=== PATIENT | male | born 1940 | race Caucasian/White ===

== ENCOUNTER 2017-03-08 16:12 | Outpatient (CLI) | payer MEDICARE, OTHER ==
--- NOTE | 2017-03-09 09:26 | MRI ---
MRI CERVICAL SPINE: HISTORY: Cervical spondylosis, M47.12. FINDINGS: Multiplanar, multisequence, noncontrast-enhanced MRI images cervical spine obtained. The spinal cord demonstrates no significant evidence of cord masses. Areas of cord compression are seen. Please see below dictation. C1-2: Unremarkable. C2-3: Unremarkable. C3-4: There is a broad-based disk-osteophyte complex centrally compressing the thecal sac resulting in a moderate degree of central spinal stenosis. Moderate to severe right and moderate left-sided C3-4 neural foraminal narrowing is seen due to uncovertebral osteophyte hypertrophy. C4-5: Disk-osteophyte complex is seen centrally compressing the thecal sac resulting in mild to mod erate central spinal stenosis. Moderate bilateral neural foraminal narrowing is seen due to uncover tebral osteophyte hypertrophy. C5-6: Disk desiccation is seen. There is a broad-based disk-osteophyte complex centrally compressi ng the thecal sac resulting in a moderate degree of central and mild lateral recess stenosis. Mild to moderate right and mild left-sided neural foraminal narrowing is seen due to uncovertebral osteop hyte hypertrophy. C6-7: Unremarkable. C7-T1: Unremarkable. IMPRESSION: Midcervical changes of spondylosis. Most significant degree of stenosis is at the C3-4 level. No s ignificant evident of signal abnormality is seen within the spinal cord. POS: [facility]
== END 2017-03-08 16:13 | disposition home or self-care (01) ==
LOC: MRI 16:12
PROVIDERS: ATTEND Neurological Surgery
DX: M47.22 Other spondylosis with radiculopathy, cervical region (principal); M48.02 Spinal stenosis, cervical region
CPT/HCPCS: 72141

== ENCOUNTER 2017-05-15 09:59 | Inpatient (IN) | payer MEDICARE, OTHER ==
[2017-05-12 14:44] VITALS: BMI 26.5
[2017-05-15] MEDS ORDERED: Ondansetron HCl/PF 4 MG/2 ML Vial ONE (10:39)
[2017-05-15] MEDS ORDERED: Dexamethasone 20 MG/5 ML VIAL ONE (10:39)
[2017-05-15] MEDS ORDERED: Glycopyrrolate 0.2 MG/ML 5 ML SYRINGE ONE (10:39)
[2017-05-15] MEDS ORDERED: Propofol 200 MG/20 ML VIAL ONE (10:39)
[2017-05-15] MEDS ORDERED: Lidocaine 1% PF 5 ML VIAL ONE (10:39)
[2017-05-15] MEDS ORDERED: PHENYLEPHRINE-NS 100 MCG/ML 10 ML SYRINGE ONE ×2 (10:39→13:56)
[2017-05-15] MEDS ORDERED: ePHEDrine/0.9% NaCl/PF SYRINGE 50 mg/10 ml ONE (10:39)
[2017-05-15 10:59] LABS: #Eosinphils 0.2 thou/uL (0.0-0.7); #Lymphocytes 1.3 thou/uL (1.20-3.40); #Monocytes 0.8 thou/uL (0.11-0.59); #Neutrophils 4.8 thou/uL (1.40-6.50); %Basophils 0.4 % (0.0-1.0); %Eosinophils 2.2 % (0.0-10.0); %Lymphocytes 18.1 % (21.0-51.0); %Monocytes 11.6 % (0.0-10.0); Hematocrit 41.2 % (42.0-52.0); Mean Platelet Volume 7.1 fL (7.4-10.4); Red Blood Cell (RBC) Count 4.13 mill/uL (4.70-6.10); White Blood Cell (WBC) Count 7.1 thou/uL (4.8-10.8)
[2017-05-15 11:19] LABS: Anion Gap 12 mmol/L (10-20); BUN (Urea Nitrogen) 18 mg/dL (8.4-25.7); Calc. Creatinine Clearance 76 mL/min (70-130); Calcium 9.4 mg/dL (7.8-10.44); Carbon Dioxide 28 mmol/L (23-31); Chloride 102 mmol/L (98-107); Estimated GFR-MDRD 68
[2017-05-15] MEDS ORDERED: Levofloxacin 500 mg/D5W 100 ml Premix Bag ONE (11:22)
[2017-05-15] MEDS ORDERED: Clindamycin/D5W 900 mg/50 ml Premix Bag ONE (11:22)
[2017-05-15] MEDS ORDERED: Fentanyl 250 MCG/5 ML VIAL ONE (12:55)
[2017-05-15] MEDS ORDERED: Sodium Chloride 0.9% 10 ML ONE (13:11)
--- NOTE | 2017-05-15 14:54 | OP ---
DATE OF PROCEDURE: 05/15/2017 SURGEON: Geraldo Higgins M.D. RAVELER: Fabien Dobson PROCEDURES: Anterior cervical diskectomy C3 through C6, interbody arthrodesis, intravertebral biomec hanical device, local morselized autograft, demineralized bone matrix, titanium instrumentation C3-C6 . DESCRIPTION OF PROCEDURE: The patient was brought into the operating room and intubated. He was pos itioned supine with the head in modest extension on a gel-filled donut. An incision made in the righ t precervical area and dissecting medial to the sternocleidomastoid muscle. We identified the anteri or cervical spine and our level was confirmed by x-ray. We debrided anterior osteophytes, placed dis traction across the disc spaces, and using the operating microscope and microdissection techniques, c ompletely removed the intravertebral discs down to the level of the dura at all affected levels. Aft er complete decompression was secured, the bony endplates were decorticated for the purpose of arthro desis and appropriately sized intravertebral biomechanical PEEK device was brought into the field, fi lled with demineralized bone matrix and local morselized autograft, and tapped into place securely at C3-4, C4-5 and C5-6. Next, an anterior plate was brought in the field and secured to C3, C4, C5, an d C6 using two 14 mm screws at each level. The wound was then extensively irrigated, immaculate hemo stasis was secured, and the wound was closed in anatomic layers over a drain.
[2017-05-15] MEDS ORDERED: Ondansetron HCl/PF 4 MG/2 ML Vial IVP PRN ×2 (14:56→17:01)
[2017-05-15] MEDS ORDERED: Promethazine HCl 25 MG/ML VIAL IM PRN ×2 (14:56→17:01)
[2017-05-15] MEDS ORDERED: Promethazine HCl 25 MG/ML VIAL SLOW IVP PRN (14:56)
[2017-05-15] MEDS ORDERED: Fentanyl 100 MCG/2 ML VIAL ONE ×2 (15:19→15:48)
[2017-05-15] MEDS ORDERED: Morphine 4 MG/ML Carpuject SLOW IVP PRN (17:01)
[2017-05-15] MEDS ORDERED: Milk Of Magnesia 30 ML UDCUP PO PRN (17:01)
[2017-05-15] MEDS ORDERED: traMADol HCl 50 MG TAB PO PRN ×2 (17:01)
[2017-05-15] MEDS ORDERED: HYDROcodone/Acetaminophen 10/325 mg Tablet PO PRN (17:01)
[2017-05-15] MEDS ORDERED: Mag-Al 1200 mg/1200 mg/30 ML UDCUP PO PRN (17:01)
[2017-05-15] MEDS ORDERED: Promethazine HCl 12.5 MG SUPP PR PRN (17:01)
[2017-05-15] MEDS ORDERED: diphenhydrAMINE 25 MG CAP PO PRN (17:01)
[2017-05-15] MEDS ORDERED: tiZANidine HCl 4 MG TAB PO PRN (17:01)
[2017-05-15] MEDS ORDERED: diphenhydrAMINE 50 MG/ML VIAL IVP PRN (17:01)
[2017-05-15] MEDS ORDERED: Morphine 4 MG/ML VIAL SLOW IVP PRN ×2 (17:07)
[2017-05-15] MEDS: Sodium Chloride 0.9% 1,000 ML IV SCH (19:19)
--- NOTE | 2017-05-15 19:21 | PDOC.PN ---
- Subjective Encounter Start Date: 05/15/17 Encounter Start Time: 07:00 Subjective: no sob. Moves all extremities -: no chest pain. No pain - Objective MAR Reviewed: Yes Vital Signs & Weight: Vital Signs (12 hours) Temp Pulse Resp BP Pulse Ox 05/15/17 18:00 98.9 F 104 H 16 164/82 H 93 L 05/15/17 17:30 99 F 101 H 16 143/80 H 94 L 05/15/17 17:15 99.1 F 108 H 16 147/77 H 94 L 05/15/17 17:00 99 F 101 H 16 94 L 05/15/17 16:39 99.3 F 108 H 16 156/84 H 95 Weight Weight 201 lb Result Diagrams: 05/15/17 10:52 05/15/17 10:52 Phys Exam - Physical Examination HEENT: PERRLA, moist MMs Neck: no JVD surgical incision anterolat neck with monie drain+ Respiratory: no wheezing, no rales Cardiovascular: RRR, no significant murmur Gastrointestinal: soft, non-tender, positive bowel sounds Musculoskeletal: pulses present Neurological: non-focal, moves all 4 limbs Psychiatric: A&O x 3 Dx/Plan (1) Dyslipidemia Code(s): E78.5 - HYPERLIPIDEMIA, UNSPECIFIED Status: Chronic (2) GERD (gastroesophageal reflux disease) Code(s): K21.9 - GASTRO-ESOPHAGEAL REFLUX DISEASE WITHOUT ESOPHAGITIS Status: Chronic Qualifiers: Esophagitis presence: esophagitis presence not specified Qualified Code(s) : K21.9 - Gastro-esophageal reflux disease without esophagitis (3) H/O prostate cancer Code(s): Z85.46 - PERSONAL HISTORY OF MALIGNANT NEOPLASM OF PROSTATE Status: Chronic (4) S/P cervical discectomy Code(s): Z98.890 - OTHER SPECIFIED POSTPROCEDURAL STATES Status: Acute - Plan oral diet as tolerated -: morphine, narco prn -: is on mevacor for dyslip -: ativan hs for insomnia -: nebs prn, i.spirometry * . Review of Systems - Medications/Allergies Allergies/Adverse Reactions: Allergies Allergy/AdvReac Type Severity Reaction Status Date / Time ampicillin AdvReac Verified 05/15/17 17:08 aspirin AdvReac Verified 05/15/17 17:08 Penicillins AdvReac Verified 05/15/17 17:08 tetracycline AdvReac Verified 05/15/17 17:08 Medications: Current Medications Hydrocodone Bitart/Acetaminophen ([place] 10/325) 1 tab PO Q4H PRN PRN Reason: PAIN (1-3) Hydrocodone Bitart/Acetaminophen ([place] 10/325) 2 tab PO Q4H PRN PRN Reason: PAIN (4-6) Al Hydroxide/Mg Hydroxide (Maalox) 30 ml PO Q4H PRN PRN Reason: Heartburn or Indigestion Diphenhydramine HCl (Benadryl) 25 mg PO Q6H PRN PRN Reason: Itching Diphenhydramine HCl (Benadryl) 25 mg IVP Q6H PRN PRN Reason: Itching Sodium Chloride (Normal Saline 0.9%) 1,000 mls @ 75 mls/hr IV .[id number] [facility] Last Admin: 05/15/17 19:19 Dose: 1,000 mls Clindamycin Phosphate/Dextrose (900 mg/ Device) 50 mls @ 100 mls/hr IVPB 0400, 1200,2000 [facility] Lorazepam (Ativan) 0.5 mg PO HS [facility] Lovastatin (Mevacor) 10 mg PO QPM-WM [facility] Magnesium Hydroxide (Milk Of Magnesium) 30 ml PO Q12H PRN PRN Reason: Constipation Morphine Sulfate (Morphine) 2 mg SLOW IVP Q1H PRN PRN Reason: Moderate Breakthrough Pain Morphine Sulfate (Morphine) 4 mg SLOW IVP Q1H PRN PRN Reason: Severe Breakthrough Pain Multivitamins (Theragran) 1 tab PO DAILY [facility] Ondansetron HCl (Zofran) 4 mg IVP Q24H PRN PRN Reason: Nausea/Vomiting Pantoprazole Sodium (Protonix) 40 mg PO QAM-WM [facility] Glucosamine Complex Patient's Home Medication 1 each PO QAM [facility] Promethazine HCl (Phenergan) 12.5 mg IM Q4H PRN PRN Reason: Nausea/Vomiting Promethazine HCl (Phenergan) 12.5 mg PO Q4H PRN PRN Reason: Nausea/Vomiting Promethazine HCl (Phenergan Suppository) 12.5 mg LA Q4H PRN PRN Reason: Nausea/Vomiting Sodium Chloride (Flush - Normal Saline) 10 ml IVF Q12HR [facility] Sodium Chloride (Flush - Normal Saline) 10 ml IVF PRN PRN PRN Reason: Saline Flush Tizanidine HCl (Zanaflex) 4 mg PO Q6H PRN PRN Reason: MUSCLE SPASM Tramadol HCl (Ultram) 50 mg PO Q6H PRN PRN Reason: PAIN (1-3) Tramadol HCl (Ultram) 100 mg PO Q6H PRN PRN Reason: PAIN (4-6)
[2017-05-15] MEDS: Clindamycin/D5W 900 MG in Premix Bag 1 BAG IVPB SCH (20:48)
[2017-05-15] MEDS: Lovastatin 20 MG TAB PO SCH (20:49)
[2017-05-15] MEDS: Lorazepam 0.5 MG TAB PO SCH (22:32)
[2017-05-16] MEDS: Sodium Chloride 0.9% 1,000 ML IV SCH ×2 (04:00→20:24)
[2017-05-16] MEDS: Clindamycin/D5W 900 MG in Premix Bag 1 BAG IVPB SCH ×3 (04:14→20:24)
[2017-05-16] MEDS: Multivit, Therapeutic 1 TAB PO SCH (08:31)
[2017-05-16] MEDS ORDERED: GLUCOSAMINE COMPLEX PO SCH (09:00)
[2017-05-16] MEDS: HYDROcodone/Acetaminophen 10/325 mg Tablet PO PRN ×2 (11:47→16:59)
--- NOTE | 2017-05-16 14:01 | PDOC.PN ---
- Subjective Encounter Start Date: 05/16/17 Encounter Start Time: 13:59 Mr. Alaniz was seen today in follow-up. He noted some pain in his left shoulder ,but otherwise ok. He denies chest pain or shortness of breath. - Objective MAR Reviewed: Yes Vital Signs & Weight: Vital Signs (12 hours) Temp Pulse Pulse Pulse Pulse Resp BP 05/16/17 11:35 98.0 F 108 H 16 05/16/17 08:00 99.2 F 119 H 18 05/16/17 07:48 105 H 110 H 117 H 131/82 05/16/17 07:45 99.2 F 119 H 05/16/17 04:00 99.2 F 115 H 20 BP BP BP Pulse Ox 05/16/17 11:35 105/50 L 96 05/16/17 08:00 96 05/16/17 07:48 138/81 138/77 05/16/17 07:45 134/78 94 L 05/16/17 04:00 136/74 93 L Weight Weight 201 lb I&O: 05/15/17 05/16/17 05/17/17 06:59 06:59 06:59 Intake Total 1140 Output Total 610 Balance 530 Result Diagrams: 05/15/17 10:52 05/15/17 10:52 Phys Exam - Physical Examination HEENT: PERRLA + bilateral rhonchi, no rales Cardiovascular: RRR, no significant murmur Gastrointestinal: soft, non-tender, positive bowel sounds Musculoskeletal: no edema Dx/Plan (1) S/P cervical discectomy Code(s): Z98.890 - OTHER SPECIFIED POSTPROCEDURAL STATES Status: Acute (2) Dyslipidemia Code(s): E78.5 - HYPERLIPIDEMIA, UNSPECIFIED Status: Chronic (3) GERD (gastroesophageal reflux disease) Code(s): K21.9 - GASTRO-ESOPHAGEAL REFLUX DISEASE WITHOUT ESOPHAGITIS Status: Chronic Qualifiers: Esophagitis presence: esophagitis presence not specified Qualified Code(s) : K21.9 - Gastro-esophageal reflux disease without esophagitis - Plan * Patient is s/p ACD- clinically stable * I have encouraged Incentive spirometry * Blood pressure is low normal * Continue as per Neurosurgery .
[2017-05-16] MEDS: Lovastatin 20 MG TAB PO SCH (17:01)
[2017-05-16] MEDS: Lorazepam 0.5 MG TAB PO SCH (21:57)
[2017-05-17] MEDS: Clindamycin/D5W 900 MG in Premix Bag 1 BAG IVPB SCH ×3 (04:24→20:25)
[2017-05-17] MEDS: Multivit, Therapeutic 1 TAB PO SCH (09:00)
[2017-05-17] MEDS: Sodium Chloride 0.9% 1,000 ML IV SCH (09:14)
[2017-05-17] MEDS: Cepastat Lozenges 1 LOZ PO PRN ×2 (12:33→16:13)
[2017-05-17] MEDS ORDERED: Dexamethasone 4 mg/ml Vial SLOW IVP SCH (16:15)
[2017-05-17] MEDS ORDERED: Acetaminophen 1,000 MG in Premix Bag 1 BAG IVPB SCH (16:45)
[2017-05-17] MEDS ORDERED: Labetalol HCl 100 MG/20 ML VIAL SLOW IVP SCH (16:45)
[2017-05-17] MEDS: Lovastatin 20 MG TAB PO SCH (17:03)
[2017-05-17] MEDS ORDERED: Labetalol HCl 100 MG/20 ML VIAL SLOW IVP PRN (17:11)
--- NOTE | 2017-05-17 17:14 | PDOC.PN ---
- Subjective Encounter Start Date: 05/17/17 Encounter Start Time: 17:12 Mr. Alaniz was seen in follow-up today. He is post ACD. He says he is having a lot of difficulty swallowing, even liquids. He also has felt a bit weaker than yesterday. His nurse also called due to elevated blood pressure. - Objective MAR Reviewed: Yes Vital Signs & Weight: Vital Signs (12 hours) Temp Pulse Resp BP BP Pulse Ox 05/17/17 16:51 111 H 178/92 H 05/17/17 16:20 94 L 05/17/17 16:15 100.6 F H 108 H 20 184/104 H 94 L 05/17/17 11:25 98.9 F 87 20 172/89 H 93 L 05/17/17 07:40 99.0 F 100 16 152/87 H 92 L 05/17/17 07:35 99.0 F 100 16 92 L Weight Weight 201 lb I&O: 05/16/17 05/17/17 05/18/17 06:59 06:59 06:59 Intake Total 1140 5680 Output Total 610 615 Balance 530 5065 Result Diagrams: 05/15/17 10:52 05/15/17 10:52 Phys Exam - Physical Examination HEENT: PERRLA Respiratory: no wheezing, no rales, no rhonchi, clear to auscultation bilateral Cardiovascular: RRR, no significant murmur Gastrointestinal: soft, non-tender, positive bowel sounds Musculoskeletal: no edema Dx/Plan (1) S/P cervical discectomy Code(s): Z98.890 - OTHER SPECIFIED POSTPROCEDURAL STATES Status: Acute (2) Dyslipidemia Code(s): E78.5 - HYPERLIPIDEMIA, UNSPECIFIED Status: Chronic (3) GERD (gastroesophageal reflux disease) Code(s): K21.9 - GASTRO-ESOPHAGEAL REFLUX DISEASE WITHOUT ESOPHAGITIS Status: Chronic Qualifiers: Esophagitis presence: esophagitis presence not specified Qualified Code(s) : K21.9 - Gastro-esophageal reflux disease without esophagitis - Plan * Dysphagia- this is an expected effect following this type of surgery. We will change him to NPO, and have speech therapy evaluate him in the morning * Elevated blood pressure without HTN- will treat with Labetalol as needed for now, and monitor * Will change his fluids to D5NS
[2017-05-17] MEDS: D5 0.9% NS w/ 20 mEq KCl 1,000 ML IV SCH (18:33)
[2017-05-17] MEDS: Lorazepam 0.5 MG TAB PO SCH (22:19)
[2017-05-18] MEDS: Clindamycin/D5W 900 MG in Premix Bag 1 BAG IVPB SCH ×2 (05:21→11:23)
[2017-05-18] MEDS: D5 0.9% NS w/ 20 mEq KCl 1,000 ML IV SCH ×2 (06:42→09:45)
[2017-05-18] MEDS: Multivit, Therapeutic 1 TAB PO SCH (09:44)
--- NOTE | 2017-05-18 10:15 | PDOC.PN ---
- Subjective Encounter Start Date: 05/18/17 Encounter Start Time: 10:08 Mr. Alaniz was seen today in follow-up of elevated blood pressure and dysphagia. He feels he is doing a bit better today. - Objective MAR Reviewed: Yes Vital Signs & Weight: Vital Signs (12 hours) Temp Pulse Resp BP BP Pulse Ox 05/18/17 08:00 99.0 F 97 16 164/95 H 92 L 05/18/17 03:51 97.9 F 95 16 138/76 93 L 05/17/17 23:41 97.5 F L 94 20 144/87 H 94 L Weight Weight 201 lb I&O: 05/17/17 05/18/17 05/19/17 06:59 06:59 06:59 Intake Total 5680 900 Output Total 615 1100 Balance 5065 -200 Result Diagrams: 05/15/17 10:52 05/15/17 10:52 Phys Exam - Physical Examination HEENT: PERRLA Respiratory: no wheezing, no rales, no rhonchi, clear to auscultation bilateral Cardiovascular: RRR, no significant murmur Gastrointestinal: soft, non-tender, positive bowel sounds Musculoskeletal: no edema Dx/Plan (1) S/P cervical discectomy Code(s): Z98.890 - OTHER SPECIFIED POSTPROCEDURAL STATES Status: Acute (2) Dyslipidemia Code(s): E78.5 - HYPERLIPIDEMIA, UNSPECIFIED Status: Chronic (3) GERD (gastroesophageal reflux disease) Code(s): K21.9 - GASTRO-ESOPHAGEAL REFLUX DISEASE WITHOUT ESOPHAGITIS Status: Chronic Qualifiers: Esophagitis presence: esophagitis presence not specified Qualified Code(s) : K21.9 - Gastro-esophageal reflux disease without esophagitis - Plan * Dysphagia- Discussed with Sheri Bob PA-C from Neurosurgery, and will hold off on speech therapy consult, and monitor him a day or two more, give a trial of a diet today * Elevated blood pressure- he does not have a history of HTN- will continue to monitor, and treat the elevations symptomatically * PT/OT * Disposition as per Neurosurgery.
[2017-05-18] MEDS: Cepastat Lozenges 1 LOZ PO PRN (11:22)
[2017-05-18] MEDS: Dexamethasone 4 mg/ml Vial SLOW IVP SCH ×2 (11:23→18:16)
[2017-05-18] MEDS: Docusate 100 MG CAP PO SCH (20:11)
[2017-05-18] MEDS: Lovastatin 20 MG TAB PO SCH (20:11)
[2017-05-18] MEDS: Lorazepam 0.5 MG TAB PO SCH (20:11)
[2017-05-19] MEDS: Dexamethasone 4 mg/ml Vial SLOW IVP SCH ×2 (00:21→07:09)
[2017-05-19] MEDS: D5 0.9% NS w/ 20 mEq KCl 1,000 ML IV SCH (01:36)
[2017-05-19 08:11] VITALS: BP 170/94; TEMP 98.8
[2017-05-19] MEDS: Docusate 100 MG CAP PO SCH (08:24)
[2017-05-19] MEDS: Multivit, Therapeutic 1 TAB PO SCH (08:24)
--- NOTE | 2017-05-19 10:33 | PDOC.PN ---
- Subjective Encounter Start Date: 05/19/17 Encounter Start Time: 10:30 Subjective: no trouble swallowing, moving all extremities - Objective MAR Reviewed: Yes Vital Signs & Weight: Vital Signs (12 hours) Temp Pulse Resp BP Pulse Ox 05/19/17 08:00 98.8 F 92 16 170/94 H 93 L Weight Weight 201 lb I&O: 05/18/17 05/19/17 05/20/17 06:59 06:59 06:59 Intake Total 900 720 Output Total 1100 Balance -200 720 Result Diagrams: 05/15/17 10:52 05/15/17 10:52 Phys Exam - Physical Examination HEENT: PERRLA, moist MMs Neck: no JVD dressing over surgical site Respiratory: no wheezing, no rales Cardiovascular: RRR, no significant murmur Gastrointestinal: soft, non-tender, positive bowel sounds Musculoskeletal: no edema, pulses present Neurological: non-focal, moves all 4 limbs Psychiatric: A&O x 3 Dx/Plan (1) Dyslipidemia Code(s): E78.5 - HYPERLIPIDEMIA, UNSPECIFIED Status: Chronic (2) GERD (gastroesophageal reflux disease) Code(s): K21.9 - GASTRO-ESOPHAGEAL REFLUX DISEASE WITHOUT ESOPHAGITIS Status: Chronic Qualifiers: Esophagitis presence: esophagitis presence not specified Qualified Code(s) : K21.9 - Gastro-esophageal reflux disease without esophagitis (3) H/O prostate cancer Code(s): Z85.46 - PERSONAL HISTORY OF MALIGNANT NEOPLASM OF PROSTATE Status: Chronic (4) S/P cervical discectomy Code(s): Z98.890 - OTHER SPECIFIED POSTPROCEDURAL STATES Status: Acute - Plan hemostable -: awaiting rehab bed -: may dc anytime if ok with nsx -: is off decadron, dc iv fluids, tolerating oral diet * . Review of Systems - Medications/Allergies Allergies/Adverse Reactions: Allergies Allergy/AdvReac Type Severity Reaction Status Date / Time ampicillin AdvReac Verified 05/15/17 17:08 aspirin AdvReac Verified 05/15/17 17:08 Penicillins AdvReac Verified 05/15/17 17:08 tetracycline AdvReac Verified 05/15/17 17:08 Medications: Current Medications Hydrocodone Bitart/Acetaminophen ([place] 10/325) 1 tab PO Q4H PRN PRN Reason: PAIN (1-3) Hydrocodone Bitart/Acetaminophen ([place] 10/325) 2 tab PO Q4H PRN PRN Reason: PAIN (4-6) Last Admin: 05/16/17 16:59 Dose: 2 tab Al Hydroxide/Mg Hydroxide (Maalox) 30 ml PO Q4H PRN PRN Reason: Heartburn or Indigestion Diphenhydramine HCl (Benadryl) 25 mg PO Q6H PRN PRN Reason: Itching Diphenhydramine HCl (Benadryl) 25 mg IVP Q6H PRN PRN Reason: Itching Docusate Sodium (Colace) 100 mg PO BID [facility] Last Admin: 05/19/17 08:24 Dose: 100 mg Potassium Chloride/Dextrose/Sod Cl (D5 0.9% Ns W/ 20 Meq Kcl) 1,000 mls @ 75 mls/hr IV .[id number] [facility] Last Admin: 05/19/17 01:36 Dose: 1,000 mls Labetalol HCl (Normodyne) 20 mg SLOW IVP Q4H PRN PRN Reason: Systolic BP > 180 Lorazepam (Ativan) 0.5 mg PO [facility] Last Admin: 05/18/17 20:11 Dose: 0.5 mg Lovastatin (Mevacor) 10 mg PO Q-[facility] Last Admin: 05/18/17 20:11 Dose: 10 mg Magnesium Hydroxide (Milk Of Magnesium) 30 ml PO Q12H PRN PRN Reason: Constipation Morphine Sulfate (Morphine) 2 mg SLOW IVP Q1H PRN PRN Reason: Moderate Breakthrough Pain Morphine Sulfate (Morphine) 4 mg SLOW IVP Q1H PRN PRN Reason: Severe Breakthrough Pain Last Admin: 05/17/17 09:10 Dose: 4 mg Multivitamins (Theragran) 1 tab PO DAILY [facility] Last Admin: 05/19/17 08:24 Dose: 1 tab Ondansetron HCl (Zofran) 4 mg IVP Q24H PRN PRN Reason: Nausea/Vomiting Pantoprazole Sodium (Protonix) 40 mg PO QAM-[facility] Last Admin: 05/19/17 08:24 Dose: 40 mg Promethazine HCl (Phenergan) 12.5 mg IM Q4H PRN PRN Reason: Nausea/Vomiting Promethazine HCl (Phenergan) 12.5 mg PO Q4H PRN PRN Reason: Nausea/Vomiting Promethazine HCl (Phenergan Suppository) 12.5 mg NC Q4H PRN PRN Reason: Nausea/Vomiting Sodium Chloride (Flush - Normal Saline) 10 ml IVF Q12HR [facility] Last Admin: 05/19/17 08:24 Dose: 10 ml Sodium Chloride (Flush - Normal Saline) 10 ml IVF PRN PRN PRN Reason: Saline Flush Throat Lozenges (Cepastat Lozenges) 1 terrell PO Q2H PRN PRN Reason: Sore Throat Last Admin: 05/18/17 11:22 Dose: 1 terrell Tizanidine HCl (Zanaflex) 4 mg PO Q6H PRN PRN Reason: MUSCLE SPASM Last Admin: 05/16/17 09:58 Dose: 4 mg Tramadol HCl (Ultram) 50 mg PO Q6H PRN PRN Reason: PAIN (1-3) Tramadol HCl (Ultram) 100 mg PO Q6H PRN PRN Reason: PAIN (4-6)
--- NOTE | 2017-05-19 14:29 | DIS ---
DATE OF ADMISSION: 05/15/2017 DATE OF DISCHARGE: 05/19/2017 DISCHARGE DISPOSITION: To home with home health. PRIMARY DISCHARGE DIAGNOSIS: Patient is status post cervical diskectomy. SECONDARY DISCHARGE DIAGNOSES: Dyslipidemia, gastroesophageal reflux disease, history of prostate ca ncer. PROCEDURES DONE DURING HOSPITALIZATION: The patient was electively admitted on 05/15/2017 for anteri or cervical diskectomy C3-C6 done by Dr. Higgins. H&H is 13 and 41. BUN and creatinine are 18 and 1.0. DISCHARGE MEDICATIONS: Nexium 40 mg p.o. daily, lorazepam 0.5 mg p.o. at bedtime, lovastatin 10 mg p .o. q.p.m., multivitamin 1 tab once daily. ALLERGIES: To AMPICILLIN, ASPIRIN, PENICILLIN, TETRACYCLINE. DISCHARGE PLAN: Patient to follow up with Dr. Higgins as advised. BRIEF COURSE DURING HOSPITALIZATION: Patient initially got electively admitted on the for anter ior cervical diskectomy C3-C6. This was done by Dr. Higgins. Postop, [facility] were consult ed for comanagement of medical issues. He has remained hemodynamically and neurologically stable. P ostop, he has had mild dysphagia and was placed briefly on steroids, which has been discontinued at t he time of discharge. He is ambulating and Neurosurgery has planned to discharge him home with home health at present. He needs follow up with Dr. Higgins as advised. Please see a [id number] docum entation on [facility] for the day of discharge.
--- NOTE | 2017-05-19 16:26 | DIS ---
DATE OF ADMISSION: 05/15/2017 DATE OF DISCHARGE: 05/19/2017 HOSPITAL COURSE: The patient is a 77-year-old male with a past medical history of GERD and hyperlipidemia, who was seen in clinical evaluation for progressively worsening cervical myelopathy in the setting of cervical stenosis. The patient underwent C3-C6 ACDF without complications. The following day, the KAT drain had minimal output and was removed. During his admission course, the patient did develop some dysphagia. This was treated with IV Decadron with significant relief. On postop day #3, the patient was able to tolerate soft diet. He was voiding appropriately. His walking has improved significantly with the assistance of Physical Therapy and he is able to walk approximately 100 feet with a walker. Initially it was recommended that patient should go to rehab; however, considering his significant improvement following his surgery felt that the patient could safely be discharged to home with home health and home health physical therapy. The patient and the family were amenable to this plan. I provided him a prescription with Zanaflex and tramadol, and will plan to see them in follow up in the office in approximately 2 weeks. I discussed incisional care precautions and reasons to reach out to us sooner. Case management is arranging home health and physical therapy. Please return to the Neurosurgery Service for additional questions or concerns. ROLANDO
== END 2017-05-19 15:21 | disposition home health service (06) | DRG 472 ==
LOC: SURG A 10:14 → ONC 16:41
PROVIDERS: ADMIT Neurological Surgery; ATTEND Neurological Surgery
PROC: 0RG2070 Fusion of 2 or more Cervical Vertebral Joints with Autologous Tissue Substitute, Anterior Approach, Anterior Column, Open Approach (ICD-10-PCS; principal; 2017-05-15)
PROC: 01N10ZZ Release Cervical Nerve, Open Approach (ICD-10-PCS; 2017-05-15)
DX: M48.02 Spinal stenosis, cervical region (principal); M47.12 Other spondylosis with myelopathy, cervical region; E78.5 Hyperlipidemia, unspecified; K21.9 Gastro-esophageal reflux disease without esophagitis; R13.10 Dysphagia, unspecified; Z88.1 Allergy status to other antibiotic agents; Z88.0 Allergy status to penicillin; Z85.46 Personal history of malignant neoplasm of prostate
CPT/HCPCS: 36415; 76001; 80048; 85025; 93005; 93010; A4216; C1713; G8978-GP-CK; G8979-GP-CI; G8987-GO-CK; G8988-GO-CI; J0131; J1100; J1956; J2001; J2270; J2405; J2704; J3010; J3490

== ENCOUNTER 2017-06-01 11:03 | Outpatient (CLI) | payer MEDICARE, OTHER ==
--- NOTE | 2017-06-01 11:42 | RAD ---
CERVICAL SPINE THREE VIEWS: History: Follow up neck surgery. Numbness and tingling. Spondylosis. FINDINGS: Anterior plate and screws transfix C3, C4, C5, and C6. Interbody implants are noted at these levels. The anterior plate does not adhere firmly to the anterior cortex of C3. The plate adheres firmly to t he anterior cortex of the other vertebrae. Implants appear adequately positioned. Posterior alignment is normally maintained. Vertebral body height is preserved. Mild degenerative changes. IMPRESSION: Post-operative changes as described. POS: [facility]
== END 2017-06-01 11:04 | disposition home or self-care (01) ==
LOC: TBSIIMAG 11:03
PROVIDERS: ATTEND Neurological Surgery
DX: M47.12 Other spondylosis with myelopathy, cervical region (principal)
CPT/HCPCS: 72040

== ENCOUNTER 2017-07-11 14:53 | Outpatient (CLI) | payer MEDICARE, OTHER ==
--- NOTE | 2017-07-11 15:43 | RAD ---
CERVICAL SPINE AP AND LATERAL STANDARD 07/11/17 HISTORY: G95.9 - cervical myelopathy. COMPARISON: Cervical spine 06/01/17. FINDINGS: There is a right posterior spinal fusion at C6-3. An ACDF at C3-C6. Mild degenerative narrowing at C2 -3. No evidence of hardware failure. No migration of the disc spacers. Laminectomy changes are C3-4. IMPRESSION: Intact hardware without complication. POS: [facility]
== END 2017-07-11 14:54 | disposition home or self-care (01) ==
LOC: TBSIIMAG 14:53
PROVIDERS: ATTEND Neurological Surgery
DX: G95.89 Other specified diseases of spinal cord (principal); Z98.890 Other specified postprocedural states
CPT/HCPCS: 72040

== ENCOUNTER 2017-10-10 12:50 | Outpatient (CLI) | payer MEDICARE, OTHER ==
--- NOTE | 2017-10-10 13:48 | RAD ---
CERVICAL SPINE TWO VIEWS: History: Cervical spine surgery. Comparison: 07-11-17 FINDINGS: AP and lateral views of the cervical spine were obtained and demonstrate an ACDF plate and screws fus ing the C3, C4, C5, and C6 levels. Right sided pedicle screws seen fusing the posterior aspect of the C3 and C4 levels. The patient has had posterior laminectomy at C3 and C4. Cervical spine appearance is stable. Plates and screws in good position, unchanged since the previous exam. IMPRESSION: Anterior and posterior cervical spine fusion. No significant interval change is seen. POS: [facility]
== END 2017-10-10 12:51 | disposition home or self-care (01) ==
LOC: TBSIIMAG 12:50
PROVIDERS: ATTEND Neurological Surgery
DX: G95.9 Disease of spinal cord, unspecified (principal); Z98.1 Arthrodesis status
CPT/HCPCS: 72040